=== PATIENT | female | born 1945 | race Caucasian/White ===

== ENCOUNTER 2017-12-26 17:25 | Inpatient (IN) | payer OTHER, MEDICAID ==
[~2017-12-26] VITALS: Ht 162.6 cm; Wt 76.6 kg
[~2017-12-26 17:25] MED LIST: ACET1CAP14 PO; ALBUAER3 IN; ALPR0.254 PO; BUSP10TA90 PO; FLUT27.52; HYDR-4683 PO; IPRASOL39 NEB; LITH300T PO; MONT10TA23 PO; NYS5LQ MT; PRE1T PO
[2017-12-26] MEDS ORDERED: ALBUTEROL SULF 2.5 MG/0.5ML(0.5%) NEB SOLN HHN ONE (18:15)
[2017-12-26] MEDS ORDERED: methylPREDNISolone SOD SUCC 125 MG/2 ML VL IV ONE (18:15)
[2017-12-26] MEDS ORDERED: IPRATROPIUM BROM 0.5 MG/2.5ML INH SOL HHN ONE (18:15)
[2017-12-26 19:10] LABS: Basophils # (auto) 0.1 uL; Basophils % (auto) 0.8 % (0.0-2.0); Eosinophils # (auto) 0.3 uL; Eosinophils % (auto) 2.6 % (0.0-7.0); Hematocrit 44.7 % (36.0-46.0); Hemoglobin 14.9 g/dL (12.2-16.2); Lymphocytes % (auto) 17.5 % (10.0-50.0); Mean Corpuscular Hemoglobin 30.5 pg (28.0-32.0); Mean Corpuscular Hgb Conc. 33.4 g/dL (32.0-36.0); Mean Corpuscular Volume 91.4 fL (80.0-100.0); Monocytes # (auto) 0.8 uL; Monocytes % (auto) 6.8 % (0.0-12.0); Neutrophils # (auto) 8.4 uL; Neutrophils % (auto) 72.3 % (37.0-80.0); Platelet Count (auto) 226 10^3/uL (140-450); Red Blood Cells 4.89 10^6/uL (4.0-5.20); Red Cell Distribution Width 13.8 % (11.8-14.3); White Blood Cell 11.6 10^3/uL (4.4-10.8)
[2017-12-26 19:22] LABS: Alanine Aminotransferase 17 U/L (13-56); Albumin 4.2 g/dL (3.4-5.0); Anion Gap 7 (5-15); Aspartate Aminotransferase 10 U/L (15-37); BUN/Creatinine Ratio 13.2; Blood Urea Nitrogen 16 mg/dL (7-18); Calcium 9.2 mg/dL (8.5-10.1); Carbon Dioxide 23 mmol/L (21-32); Chloride 109 mmol/L (98-107); GFR African American 56 mL/min; GFR Non-African American 46 mL/min; Glucose 99 mg/dL (74-106); Magnesium 2.1 mg/dL (1.6-2.6); Potassium 4.1 mmol/L (3.5-5.1); Sodium 139 mmol/L (136-145)
[2017-12-26 19:27] LABS: Alkaline Phosphatase 73 U/L (45-117); Total Protein 7.5 g/dL (6.4-8.2)
[2017-12-26] MEDS ORDERED: HYDROcodone-ACET 5/325MG TAB PO PRN (20:45)
[2017-12-26] MEDS ORDERED: ALBUTEROL SULF 2.5 MG/0.5ML(0.5%) NEB SOLN NEB PRN (20:45)
[2017-12-26] MEDS ORDERED: IPRATROPIUM BROM 0.5 MG/2.5ML INH SOL NEB PRN (20:45)
[2017-12-26] MEDS ORDERED: DOCUSATE SOD 100 MG CAP PO PRN (20:45)
[2017-12-26] MEDS ORDERED: ONDANSETRON HCL 4 MG/2 ML VIAL IV PRN (20:45)
[2017-12-26] MEDS ORDERED: LEVOFLOXACIN 500MG 100 ML IV ONE (20:45)
[2017-12-26] MEDS ORDERED: TEMAZEPAM 15 MG CAP PO PRN (20:45)
[2017-12-26] MEDS ORDERED: MONTELUKAST SODIUM 10 MG TAB PO SCH (22:00)
[2017-12-26] MEDS ORDERED: FAMOTIDINE 20 MG TAB PO SCH (22:00)
[2017-12-26] MEDS: LITHIUM CARBONATE 300 MG TAB PO SCH (22:53)
[2017-12-26] MEDS: busPIRone HCL 10 MG TAB PO SCH (22:54)
[2017-12-26 23:20] VITALS: BP 135/55
[2017-12-26 23:25] VITALS: BP 135/55
[2017-12-27 00:43] LABS: Urine Bacteria FEW /hpf (None Seen); Urine Blood Negative /uL (Negative); Urine Specific Gravity 1.004 (1.001-1.035); Urine WBC 7 /hpf (0 - 5)
[2017-12-27 01:05] VITALS: BP 135/55
[2017-12-27] MEDS: ACETAMINOPHEN 325 MG TAB PO PRN ×2 (01:32→10:39)
[2017-12-27] MEDS ORDERED: ATOR10TA52 PO (03:18)
[2017-12-27] MEDS ORDERED: PSYLCAP5 PO (03:18)
[2017-12-27] MEDS ORDERED: ACET-1156 PO (03:18)
[2017-12-27] MEDS ORDERED: LEVA1NEB5 NEB (03:18)
[2017-12-27] MEDS ORDERED: MONT10TA34 PO (03:18)
[2017-12-27 05:09] VITALS: BP 103/60
[2017-12-27 07:40] LABS: Basophils # (auto) 0.1 uL; Basophils % (auto) 0.9 % (0.0-2.0); Eosinophils # (auto) 0.4 uL; Eosinophils % (auto) 4.2 % (0.0-7.0); Hematocrit 41.1 % (36.0-46.0); Hemoglobin 13.5 g/dL (12.2-16.2); Lymphocytes % (auto) 28.9 % (10.0-50.0); Mean Corpuscular Hemoglobin 29.8 pg (28.0-32.0); Mean Corpuscular Hgb Conc. 32.8 g/dL (32.0-36.0); Mean Corpuscular Volume 90.9 fL (80.0-100.0); Monocytes # (auto) 0.9 uL; Monocytes % (auto) 8.5 % (0.0-12.0); Neutrophils % (auto) 57.5 % (37.0-80.0); Platelet Count (auto) 206 10^3/uL (140-450); Red Blood Cells 4.53 10^6/uL (4.0-5.20); Red Cell Distribution Width 13.6 % (11.8-14.3); White Blood Cell 10.4 10^3/uL (4.4-10.8)
[2017-12-27 08:03] LABS: Albumin 3.6 g/dL (3.4-5.0); BUN/Creatinine Ratio 15.7; Bilirubin, Total 1.7 mg/dL (0.2-1.0); Calcium 8.9 mg/dL (8.5-10.1); Total Protein 6.5 g/dL (6.4-8.2)
[2017-12-27 08:35] VITALS: BP 103/67
[2017-12-27] MEDS ORDERED: predniSONE 1 MG TAB PO SCH (10:00)
[2017-12-27] MEDS ORDERED: ENOXAPARIN SOD 40 MG/0.4 ML SYRINGE SC SCH (10:00)
[2017-12-27] MEDS: LITHIUM CARBONATE 300 MG TAB PO SCH (10:38)
[2017-12-27] MEDS: busPIRone HCL 10 MG TAB PO SCH (10:38)
[2017-12-27 12:09] VITALS: BP 104/58
[2017-12-27 14:09] VITALS: BP 104/58
[2017-12-27] MEDS ORDERED: LEVOFLOXACIN 250MG 50 ML IV SCH (22:00)
== END 2017-12-27 15:15 | disposition home or self-care (01) | DRG 202 ==
LOC: ER 17:25 → EDBD 17:25 → TELE 17:26 → TELE-CENTR 23:20
PROVIDERS: ADMIT Nurse Practitioner; ATTEND Nurse Practitioner
DX: J20.9 Acute bronchitis, unspecified (principal); J44.0 Chronic obstructive pulmonary disease with (acute) lower respiratory infection; J44.1 Chronic obstructive pulmonary disease with (acute) exacerbation; I10 Essential (primary) hypertension; F41.9 Anxiety disorder, unspecified; R25.1 Tremor, unspecified; R06.03 Acute respiratory distress; Z88.5 Allergy status to narcotic agent; Z87.891 Personal history of nicotine dependence; Z88.0 Allergy status to penicillin; Z79.52 Long term (current) use of systemic steroids; Z88.8 Allergy status to other drugs, medicaments and biological substances; Z91.041 Radiographic dye allergy status
CPT/HCPCS: 36415; 71045; 80053; 80178; 81001; 83605; 83735; 83880; 84484; 85025; 87040; 93005; 94640; 94761; 96365; J1956

== ENCOUNTER 2023-06-23 09:04 | Emergency (ER) | payer OTHER ==
[~2023-06-23] VITALS: Ht 152.4 cm; Wt 57.7 kg
[~2023-06-23 09:04] MED LIST changes: +ACET-1881 PO; -ACET1CAP14 PO; -ALBUAER3 IN; +ATOR10TA52 PO; -HYDR-4683 PO; -IPRASOL39 NEB; +LEVA1NEB5 NEB; +MONT-8 PO; -MONT10TA23 PO; -NYS5LQ MT; -PRE1T PO; +PSYLCAP5 PO
[2023-06-23 10:22] LABS: Basophils # (auto) 0.1 10 ^3/uL (0-0.2); Basophils % (auto) 0.5 % (0.0-2.0); Eosinophils # (auto) 0 10 ^3/uL (0-0.8); Eosinophils % (auto) 0.1 % (0.0-7.0); Hematocrit 41.6 % (36.0-46.0); Hemoglobin 13.6 g/dL (12.2-16.2); Lymphocytes # (auto) 1.7 10 ^3/uL (0.4-5.4); Mean Corpuscular Hemoglobin 28.3 pg (28.0-32.0); Mean Corpuscular Hgb Conc. 32.8 g/dL (32.0-36.0); Mean Corpuscular Volume 86.2 fL (80.0-100.0); Monocytes % (auto) 8.9 % (0.0-12.0); Neutrophils # (auto) 8.6 10 ^3/uL (1.6-8.6); Neutrophils % (auto) 75.5 % (37.0-80.0); Nucleated Red Blood Cells % 0.1 %; Red Blood Cells 4.83 10^6/uL (4.0-5.20); Red Cell Distribution Width 15.2 % (11.8-14.3); White Blood Cell 11.3 10^3/uL (4.4-10.8)
[2023-06-23 10:41] LABS: Alanine Aminotransferase 21 U/L (7-40); Albumin 4.6 g/dL (3.2-4.8); Alkaline Phosphatase 44 U/L (46-116); Anion Gap 7 (5-15); Aspartate Aminotransferase 17 U/L (13-40); BUN/Creatinine Ratio 14.9 (10.0-20.0); Blood Urea Nitrogen 13 mg/dL (9-23); Calcium 10.5 mg/dL (8.5-10.1); Carbon Dioxide 26 mmol/L (20-30); Chloride 108 mmol/L (98-107); Glucose 103 mg/dL (74-106); Potassium 4.1 mmol/L (3.5-5.1); Sodium 141 mmol/L (136-145)
[2023-06-23 10:42] LABS: Bilirubin, Total 0.7 mg/dL (0.2-1.0); Total Protein 6.5 g/dL (5.7-8.2)
[2023-06-23 11:38] LABS: Urine Bacteria FEW /hpf (None Seen); Urine Blood Negative /uL (Negative); Urine Clarity Clear (Clear); Urine Protein, UAD 1+ (Negative); Urine Specific Gravity 1.009 (1.001-1.035); Urine Urobilinogen Normal (Negative); Urine WBC 54 /hpf (0 - 5); Urine pH 6.5 (5.0-8.0)
[2023-06-23 11:50] LABS: Urine Color Yellow (Yellow)
[2023-06-23] MEDS ORDERED: LEVO500T91 PO (14:03)
[2023-06-23] MEDS ORDERED: CEFD300C2 PO (15:34)
[2023-06-23] MEDS: levoFLOXacin 500MG 100 ML IV ONE (15:56)
[2023-06-23] MEDS: SODIUM CHLORIDE 0.9% 1,000 ML IV ONE (18:00)
[2023-06-23] MEDS: ceFAZolin 1GM/50ML 50 ML IV ONE (18:00)
[2023-06-23 19:09] LABS: Basophils # (auto) 0 10 ^3/uL (0-0.2); Basophils % (auto) 0.3 % (0.0-2.0); Eosinophils # (auto) 0 10 ^3/uL (0-0.8); Hematocrit 42.9 % (36.0-46.0); Lymphocytes # (auto) 1.6 10 ^3/uL (0.4-5.4); Mean Corpuscular Hemoglobin 28.1 pg (28.0-32.0); Mean Corpuscular Hgb Conc. 32.7 g/dL (32.0-36.0); Mean Corpuscular Volume 85.8 fL (80.0-100.0); Neutrophils # (auto) 9.9 10 ^3/uL (1.6-8.6); Neutrophils % (auto) 78.7 % (37.0-80.0); Red Cell Distribution Width 15.4 % (11.8-14.3); White Blood Cell 12.6 10^3/uL (4.4-10.8)
[2023-06-23 19:24] LABS: INR 0.99 (0.9-1.15); Partial Thromboplastin Time 20.5 SEC (24.5-34.5); Prothrombin Time 10.4 sec (9.3-11.8)
[2023-06-23 19:29] LABS: Alanine Aminotransferase 22 U/L (7-40); Albumin 4.9 g/dL (3.2-4.8); Alkaline Phosphatase 42 U/L (46-116); Anion Gap 6 (5-15); Aspartate Aminotransferase 21 U/L (13-40); BUN/Creatinine Ratio 18.6 (10.0-20.0); Blood Urea Nitrogen 18 mg/dL (9-23); Calcium 11.1 mg/dL (8.7-10.4); Carbon Dioxide 24 mmol/L (20-30); Chloride 106 mmol/L (98-107); Glucose 116 mg/dL (74-106); Magnesium 1.9 mg/dL (1.6-2.6); Potassium 4.3 mmol/L (3.5-5.1); Sodium 136 mmol/L (136-145)
[2023-06-23 19:30] LABS: Bilirubin, Total 0.7 mg/dL (0.2-1.0); Total Protein 7.1 g/dL (5.7-8.2)
[2023-06-23 23:10] VITALS: BP 142/64; PULSE 72; RESP 16; TEMP 98.4; O2SAT 97
== END 2023-06-23 23:30 | disposition short-term general hospital (02) ==
LOC: EDBD 09:04 → ER 09:04
DX: N39.0 Urinary tract infection, site not specified (principal); I10 Essential (primary) hypertension; J44.9 Chronic obstructive pulmonary disease, unspecified; Z90.710 Acquired absence of both cervix and uterus; Z79.899 Other long term (current) drug therapy; Z88.0 Allergy status to penicillin; Z88.2 Allergy status to sulfonamides; Z88.8 Allergy status to other drugs, medicaments and biological substances
CPT/HCPCS: 36415; 71045; 80053; 80178; 81001; 83735; 83880; 84484; 85025; 85610; 85730; 87040; 93005; 96365; 99285; J0690